=== PATIENT | male | born 1980 | race Caucasian/White ===

== ENCOUNTER 2021-03-17 23:03 | Emergency (ER) | payer SELFPAY ==
[2021-03-17] MEDS ORDERED: XYLOCAINE 1%/Epi 1:100000 MDV 20 ML ONE (23:08)
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
[2021-03-17 23:38] VITALS: BP 152/88; PULSE 90; O2SAT 97
== END 2021-03-17 23:43 | disposition home or self-care (01) ==
LOC: ED 23:03
DX: S01.112A Laceration without foreign body of left eyelid and periocular area, initial encounter (principal); Y08.02XA Assault by strike by baseball bat, initial encounter; Y93.9 Activity, unspecified; Y92.413 State road as the place of occurrence of the external cause; Y99.8 Other external cause status
CPT/HCPCS: 12013; 99283